=== PATIENT | female | born 1960 | race Caucasian/White ===

== ENCOUNTER → 2018-07-06 09:05 | Outpatient (CLI) | payer OTHER, MEDICAID, SELFPAY ==
--- NOTE | 2018-07-06 | DI.MG.S_ITS ---
BILATERAL DIGITAL DIAGNOSTIC MAMMOGRAM 3D/2D: 07/06/2018 CLINICAL: Left breast mass and pain with skin redness and peeling. No prior exams were available for comparison. There are scattered fibroglandular elements in both breasts. There is a low density focal asymmetry in the left breast at 3 o'clock anterior depth. This correlates as palpated. No other significant masses, calcifications, or other findings are seen in either breast. IMPRESSION: INCOMPLETE: NEEDS ADDITIONAL IMAGING EVALUATION The low density focal asymmetry in the left breast is indeterminate. An ultrasound is recommended. This exam was interpreted at Station ID: [id number]. NOTE: For mammograms, a report in lay terms will be sent to the patient. Approximately 15% of breast malignancies will not be visualized mammographically. In the management of a palpable breast mass, a negative mammogram must not discourage biopsy of a clinically suspicious lesion. Electronically Signed By: Agnes macias/alon:07/07/2018 10:33:26 Entry: - 07/07/2018 10:33:26 letter sent: Need Ultrasound ACR BI-RADS Category 0: Incomplete [id number]
== END ==
PROVIDERS: PCP Physician Assistant; Visit Provider Physician Assistant
DX: R92.8 Other abnormal and inconclusive findings on diagnostic imaging of breast (principal); N64.4 Mastodynia; N63.20 Unspecified lump in the left breast, unspecified quadrant
CPT/HCPCS: 77066; G0279

== ENCOUNTER 2018-08-12 23:15 | Emergency (ER) | payer OTHER, MEDICAID, SELFPAY ==
--- NOTE | 2018-08-12 23:19 | ED.GENADULT ---
HPI - General Adult General Chief complaint: Wound/Laceration Stated complaint: right wrist laceration sent by EMS Time Seen by Provider: 08/12/18 23:19 Source: patient Mode of arrival: ambulatory Limitations: no limitations History of Present Illness HPI narrative: Patient is a 57-year-old female not on anticoagulation here for evaluation of a laceration to her right wrist. Patient states that she was doing dishes when she cut her right wrist with a steak knife. [place] told to come the emergency department because of the bleeding. She does not know when her last tetanus shot was. The only intervention prior to arrival was placing a bandage over the laceration. Related Data Allergies Allergy/AdvReac Type Severity Reaction Status Date / Time INGREDIENT: NO KNOWN - NO Allergy Unknown Uncoded 12/14/17 13:11 KNOWN DRUG ALLERGY Review of Systems Musculoskeletal Comments: Pain in the right arm Integumentary/Breasts Comments: Cut to the right wrist Neurologic Comments: No tingling to the right hand Hematologic/Lymphatic Comments: Not on anticoagulation PFSH Medical History Healthy adult (Acute) Surgical History No pertinent past surgical history (Acute) Social History lives independently: Yes Smoking Status: Current every day smoker Exam Initial Vital Signs Initial Vital Signs: Vital Signs Temperature 97.7 F 08/12/18 23:24 Pulse Rate 96 H 08/12/18 23:24 Respiratory Rate 16 08/12/18 23:24 Blood Pressure 124/85 08/12/18 23:24 Pulse Oximetry 98 08/12/18 23:24 Const General: cooperative, healthy appearing, comfortable, well developed, well groomed and No acute distress Orientation: alert, awake and oriented x3 HENMT Head: normal to inspection and normocephalic Resp Effort & Inspection: normal respiratory effort Cardio Rate: regular rate Skin Other: 1 cm laceration to the volar aspect of the wrist just proximal to the wrist. Ulnar aspect. No active bleeding. Neuro General: alert, awake and oriented x3 Sensory Exam: no sensory deficits noted Extrem General: normal to inspection and capillary refill normal Psych Appearance: grossly normal and well kempt Procedures Laceration Repair Laceration 1: Site: upper extremity Side (If applicable): right Size (cm): 1 Description: linear Depth: simple, single layer Local Anesthetic: lidocaine 1% Amount of anesthesia used (mL): 2 Pre-repair: wound explored, irrigated extensively and deep structures intact Skin layer closed with: nylon Size (cm): 4-0 Number of sutures: 2 Technique: simple, interrupted Course Orders Ordered: Discontinued Medications Diphtheria/Tetanus/Acell Pertussis (Adacel) 0.5 ml IM .ONCE ONE Stop: 08/12/18 23:52 Last Admin: 08/13/18 00:04 Dose: 0.5 ml Vital Signs - 8 hr 08/12/18 23:24 Temperature 97.7 F Pulse Rate 96 H Respiratory Rate 16 Blood Pressure 124/85 Pulse Oximetry 98 Medical Decision Making MDM Narrative Medical decision making narrative: Patient is neurovascularly intact. Her tetanus was updated. The wound was irrigated extensively with out any deep structures injured. Closed as described above. Bandage placed. Patient was given care instructions. She can take Tylenol Motrin for any discomfort. She asked for Tylenol with codeine and I told her that Tylenol and Motrin should be sufficient. She was given return precautions. She expressed understanding and agreement with plan. Discharge Plan Departure Patient Disposition: Home Clinical Impression: Laceration of wrist, right Instructions: DI for Laceration Repair -- Simple Activity Restrictions/Additional Instructions: Keep the bandage on for the next 24 hr. After that you can remove it. You can wash your hands and shower like normal. The stitches do need to be removed in approximately 7-10 days. Your primary care doctor can do this. Take Tylenol or Motrin for any discomfort. Return to the emergency department for any new or worsening symptoms
[2018-08-12 23:24] VITALS: BP 124/85; PULSE 96; RESP 16; TEMP 36.5; O2SAT 98; BMI 26.9
[2018-08-13] MEDS: TET,DIPH,PERTUSS(ACELL),VAC/PF 0.5 ML SYRINGE IM (00:04)
[2018-08-13] MEDS: IBUPROFEN 400 MG TABLET 800 MG PO (00:56)
== END 2018-08-13 00:55 | disposition home or self-care (01) ==
PROVIDERS: Emergency Provider Emergency Medicine; PCP Physician Assistant
DX: S61.511A Laceration without foreign body of right wrist, initial encounter (principal); W26.0XXA Contact with knife, initial encounter; Y93.G1 Activity, food preparation and clean up
CPT/HCPCS: 12001; 90471; 99283; 90715

== ENCOUNTER → 2018-09-14 10:24 | Outpatient (CLI) | payer OTHER, MEDICAID, SELFPAY ==
--- NOTE | 2018-09-14 11:00 | DI.US.S_ITS ---
Patient Name: EMMA SILVA date: 1960 Sex: F Attending Physician: Tanner Indications: Date: 09/14/2018 13:02 At the request of: PHILIP WARD Procedure: US breast LT limited ULTRASOUND OF LEFT BREAST: 09/14/2018 CLINICAL: Palpable left breast lump for several months with improved but persistent skin erythema. Initially, there was a persistent asymmetry in the lateral subareolar region on recent mammogram of July 2018. Patient reports persistent symptoms despite 2 courses of antibiotics that was last taken 2 months prior. [facility] of the left breast was performed. Ly scale images of the real-time examination were reviewed. No abnormalities were seen sonographically in the left breast. IMPRESSION: INCOMPLETE: NEEDS ADDITIONAL IMAGING EVALUATION No sonographic abnormality noted in the area of palpable concern and overlying skin erythema. However, given persistence of clinical findings for approximately 4 months despite antibiotic therapy, recommend further evaluation with breast MRI. This exam was interpreted at Station ID: [id number]. Electronically Signed By: Mario Lopez M.D. aty/:09/15/2018 07:15:46 Entry: - 09/15/2018 07:15:46 letter sent: Need MRI Ultrasound BI-RADS: 0 Indeterminate
== END ==
PROVIDERS: PCP Physician Assistant; Visit Provider Physician Assistant
DX: R92.8 Other abnormal and inconclusive findings on diagnostic imaging of breast (principal)
CPT/HCPCS: 76642

== ENCOUNTER 2018-11-01 08:52 | Emergency (ER) | payer OTHER, MEDICAID, SELFPAY ==
[2018-11-01 09:00] VITALS: BP 158/83; PULSE 95; RESP 18; TEMP 36.9; O2SAT 99; BMI 28.6
--- NOTE | 2018-11-01 10:08 | DI.CT.S_ITS ---
PROCEDURE: CT HEAD/BRAIN WO CON INDICATIONS: neuro symptoms/trauma TECHNIQUE: Noncontrast 4.5 mm thick angled axial sections acquired from the foramen magnum to the vertex, with coronal and sagittal reformats. For radiation dose reduction, the following was used: automated exposure control, adjustment of mA and/or kV according to patient size. COMPARISON: None. FINDINGS: Image quality: Excellent. CSF spaces: Basal cisterns are patent. No extra-axial fluid collections. Ventricles are normal in size and shape. Brain: No midline shift. No intracranial masses or hemorrhage. Ly-white matter interface is normal. Skull and face: Calvarium and visualized facial bones are intact, without suspicious lesions. Sinuses: Visualized sinuses and mastoids are clear. IMPRESSION: No acute intracranial hemorrhage or other acute intracranial abnormality is detected. Dictated by: Dashawn Wilkerson M.D. on 11/01/2018 at 9:29 Approved by: Dashawn Wilkerson M.D. on 11/01/2018 at 9:30
[2018-11-01 11:06] VITALS: BP 128/84; PULSE 95; RESP 16; O2SAT 99
--- NOTE | 2018-11-01 11:46 | ED.HEATRA ---
HPI - Head Injury General Chief complaint: Head Injury Stated complaint: FELL, DIZZY, SLURRED SPEECH Time Seen by Provider: 11/01/18 11:45 Source: patient and family Mode of arrival: ambulatory Limitations: no limitations History of Present Illness HPI Narrative: This is a 58-year-old female comes to the emergency department with complaint of head injury approximately a week ago. Patient states that she had a slip and fall and fell hitting her head. Patient states since then she has had a little bit of a headache, she has felt dizzy, she had vomiting for about 3 or 4 days which has since resolved. Patient states she has a history of Meniere's disease. patient states she has chronic vertigo like symptoms and typically does have dizziness. She has felt like her years been sort of full she has had some decrease in hearing. Her states she seemed a little bit less focused and had some trouble word finding. She has not had any new weakness left versus right. She states she has had some weakness on the right side for 8 or 9 years. Patient has not followed with ENT in many years for her Meniere's disease. She is not having any weakness, numbness or tingling. Related Data Home Medications Medication Instructions Recorded Confirmed clonazepam 0.5 mg PO DAILY 11/01/18 11/01/18 gabapentin 600 mg PO TID 11/01/18 11/01/18 lisinopril 40 mg PO DAILY 11/01/18 11/01/18 oxycodone-acetaminophen 1 tab PO BID 11/01/18 11/01/18 Previous Rx's Medication Instructions Recorded ondansetron HCl [Zofran] 4 mg PO QID PRN #10 tab 11/01/18 Allergies Allergy/AdvReac Type Severity Reaction Status Date / Time No Known Drug Allergies Allergy Verified 11/01/18 09:00 Review of Systems Review of Systems ROS Unobtainable: All systems reviewed & are unremarkable except as noted in HPI and below Constitutional Denies chills, Denies fever(s), Denies lethargy and Denies weakness ENT Ears, Nose, Mouth, and Throat: Reports neck pain ( chronic) Cardiovascular Denies lightheadedness Gastrointestinal Gastrointestinal: Denies abdominal pain, Denies change in bowel habits, Denies diarrhea, Reports nausea and Denies vomiting ( Was for a couple days, stop now) Musculoskeletal Reports as per HPI, Denies muscle weakness, Reports neck pain ( chronic), Denies numbness, Denies stiffness and Denies tingling Neurologic Denies numbness, Denies tingling and Denies weakness PFSH Medical History Healthy adult (Acute) Meniere disease (Acute) Surgical History No pertinent past surgical history (Acute) Social History details: Lives on [facility] lives independently: Yes Smoking Status: Current every day smoker Social History details: Lives on [facility] lives independently: Yes Smoking Status: Current every day smoker Exam Narrative Exam Narrative: GEN: well nourished, well appearing Female, alert and oriented x 3, patient appears to be in no acute distress. HEENT: Atraumatic, pupils are equal round reactive to light, extraocular movements are intact, nares are clear, TMs are clear with no fluid, there is no conjunctival pallor. Throat is clear without any exudates, erythema, tonsillar enlargement or uvular deviation HEART: Regular rate and rhythm without murmur, clicks, rubs. LUNGS:Lungs clear to auscultation, no wheezes, rales, crackles, chest moves symmetrically ABD:bowel sounds normal, soft, non-tender, no guarding, rebound, rigidity, no masses noted, no hepatosplenomegaly :No CVA tenderness MSCL: Non-tender, no vertebral tenderness of the cervical spine or thoracic spine. Full range of motion.no muscle atrophy, muscles strength 5/5 upper and lower extremities, full range of motion, normal gait NEURO:CN 2-12 intact, sensation normal, reflexes 2/4 upper and lower extremities. Initial Vital Signs Initial Vital Signs: Vital Signs Temperature 98.4 F 11/01/18 09:00 Pulse Rate 95 H 11/01/18 09:00 Respiratory Rate 18 11/01/18 09:00 Blood Pressure 158/83 H 11/01/18 09:00 Pulse Oximetry 99 11/01/18 09:00 Course Orders Ordered: ED Orders 11/01/18 10:08 CT head/brain wo con Stat Discontinued Medications Meclizine HCl (Antivert) 25 mg PO NOW ONE Stop: 11/01/18 12:07 Last Admin: 11/01/18 12:19 Dose: 25 mg Vital Signs - 8 hr 11/01/18 11:06 11/01/18 12:42 Temperature 98.3 F Pulse Rate 95 H 98 H Respiratory Rate 16 16 Blood Pressure [Left Arm] 128/84 121/76 Pulse Oximetry 99 100 MDM - Head Injury Imaging Data Head CT : Radiologist's impression: [address] [address] [address] Scan Report Signed Patient: Whitney Low LMR#: [id number] : 1960Acct:[id number] Age/Sex: 58 / FDate of Service: 11/01/18 Loc: ED Accession Number: [id number] Procedure: CT head/brain wo con Ordering Provider: Renetta Hernandez D.O. PROCEDURE: CT HEAD/BRAIN WO CON INDICATIONS: neuro symptoms/trauma TECHNIQUE: Noncontrast 4.5 mm thick angled axial sections acquired from the foramen magnum to the vertex, with coronal and sagittal reformats. For radiation dose reduction, the following was used: automated exposure control, adjustment of mA and/or kV according to patient size. COMPARISON: None. FINDINGS: Image quality: Excellent. CSF spaces: Basal cisterns are patent. No extra-axial fluid collections. Ventricles are normal in size and shape. Brain: No midline shift. No intracranial masses or hemorrhage. Ly-white matter interface is normal. Skull and face: Calvarium and visualized facial bones are intact, without suspicious lesions. Sinuses: Visualized sinuses and mastoids are clear. IMPRESSION: No acute intracranial hemorrhage or other acute intracranial abnormality is detected. Dictated by: Dashawn Wilkerson M.D. on 11/01/2018 at 9:29 Approved by: Dashawn Wilkerson M.D. on 11/01/2018 at 9:30 [facility] Narrative Medical decision making narrative: Patient requested a dose of meclizine here, she left her prescription at home on 1 of the. I discussed suspect she has a concussion based on her symptomatology. She also has known history of many years and her long-standing history is are consistent with this. We discussed having her follow up with ENT as there may be options are medications that are available that would be helpful for symptom control. Patient I did discuss doing a short course of Zofran for nausea. Patient is comfortable with this plan. She was able to ambulate out the department without any issue. Discharge Plan Departure Patient Disposition: Home Clinical Impression: Concussion, Meniere disease Discharge Date/Time: 11/01/18 12:45 Interventions: ED Discharge Assessment Last Done: 11/01/18 13:09 Instructions: Concussion Activity Restrictions/Additional Instructions: Follow-up with her primary care physician in the next week if your symptoms are not improving. You may take Zofran under the tongue every 6 hr as needed for nausea. Continue your meclizine at home as needed for vertigo /Meniere symptoms. Included is referral for ENT for follow-up regarding her Meniere's disease. They may have some additional therapies or treatments that are helpful for your chronic symptoms. Return to the emergency department for passing out, sudden severe headache, persistent vomiting, new weakness, numbness, difficulty with movement or other new or concerning symptoms. Prescriptions: New ondansetron HCl [Zofran] 4 mg tablet 4 mg PO QID PRN (Reason: nausea and vomiting) Qty: 10 RF: 0 No Action gabapentin 600 mg tablet 600 mg PO TID RF: 0 clonazepam 0.5 mg tablet 0.5 mg PO DAILY RF: 0 oxycodone-acetaminophen 5-325 mg tablet 1 tab PO BID RF: 0 lisinopril 40 mg tablet 40 mg PO DAILY RF: 0 Referrals: Alonzo Jacome MD [Physician] - Daniella Hart PA-C [Primary Care Provider] -
[2018-11-01] MEDS: MECLIZINE HCL 12.5 MG TABLET 25 MG PO (12:19)
[2018-11-01 12:42] VITALS: BP 121/76; PULSE 98; RESP 16; TEMP 36.8; O2SAT 100
== END 2018-11-01 12:45 | disposition home or self-care (01) ==
PROVIDERS: Emergency Provider Emergency Medicine; PCP Physician Assistant
DX: S06.0X9A Concussion with loss of consciousness of unspecified duration, initial encounter (principal); H81.09 Meniere's disease, unspecified ear; W01.0XXA Fall on same level from slipping, tripping and stumbling without subsequent striking against object, initial encounter
CPT/HCPCS: 70450; 99282; 99283

== ENCOUNTER → 2018-12-07 11:12 | Outpatient (CLI) | payer OTHER, MEDICAID, SELFPAY ==
--- NOTE | 2018-12-07 | DI.MRI.S_ITS ---
BREAST MRI OF BOTH BREASTS- WITH CAD: 12/07/2018 CLINICAL: Abscess of left breast nipple. Comparison is made to exams dated: 09/14/2018 ultrasound and 07/06/2018 mammogram - [facility]. Interpretation of this MRI was correlated with available mammograms and ultrasounds. Informed consent was obtained from the patient. 20 cc of ProHance (Gadoteridol) nonionic contrast was injected. Axial T2, sagittal T1, and pre and post contrast T1 images were obtained with a dedicated breast coil. Post processing was performed including computer aided calculations of any tumor volumes and dimensions. Bilateral background breast enhancement is minimal. Right breast: No discrete mass or suspicious enhancement to suggest malignancy. No fluid collections. Left breast: There is a small curvilinear region of left retroareolar enhancement measuring up to approximately 1.6 cm in anteroposterior extent. No fluid collections to suggest an abscess. No definite abnormal skin thickening or enhancement. Elsewhere, no discrete mass or abnormal enhancement to suggest malignancy. Miscellaneous: No axillary or internal mammary lymphadenopathy by size criteria. IMPRESSION: INCOMPLETE: NEEDS ADDITIONAL IMAGING EVALUATION 1. Small curvilinear region of left retroareolar enhancement is indeterminate and may represent ductal inflammatory or infectious changes. However, given the appearance of enhancement within the duct, a 2nd look ultrasound is recommended to evaluate for possible intraductal mass lesion. 2. No abscess identified in the left breast as clinically queried. This exam was interpreted at Station ID: [id number]. Electronically Signed By: Bj Garcia M.D. ddbeatriz/:12/07/2018 17:24:48 letter sent: Need Ultrasound ACR BI-RADS Category 0: Incomplete [id number]
== END ==
PROVIDERS: PCP Physician Assistant; Visit Provider Family Medicine
DX: R92.8 Other abnormal and inconclusive findings on diagnostic imaging of breast (principal); N61.1 Abscess of the breast and nipple
CPT/HCPCS: 77049; A9579

== ENCOUNTER → 2019-05-09 10:48 | Outpatient (CLI) | payer OTHER, MEDICAID, SELFPAY ==
--- NOTE | 2019-05-09 | DI.US.S_ITS ---
LIMITED SECONDLOOK ULTRASOUND OF LEFT BREAST: 05/09/2019 CLINICAL: Additional evaluation requested from prior study. Comparison is made to exams dated: 12/07/2018 breast MRI, 09/14/2018 ultrasound, and 07/06/2018 mammogram [facility]. Real-time ultrasound of the left breast retroareolar was performed. Ly scale images of the real-time examination were reviewed. No significant abnormalities were seen sonographically in the left breast. Specifically, no finding to correspond to the patient's MRI abnormality. IMPRESSION: NEGATIVE No suspicious sonographic finding to correspond to MRI finding. There is no sonographic evidence of malignancy. Return to annual mammogram screening schedule is recommended. Findings and recommendations were conveyed to the patient at time of exam. This exam was interpreted at Station ID: [id number]. Electronically Signed By: Laura joy/:05/09/2019 15:54:17 letter sent: Normal Exam Ultrasound BI-RADS: 1 Negative
== END ==
PROVIDERS: PCP Physician Assistant; Visit Provider Physician Assistant
DX: R92.8 Other abnormal and inconclusive findings on diagnostic imaging of breast (principal)
CPT/HCPCS: 76642

== ENCOUNTER → 2019-07-11 11:09 | Outpatient (CLI) | payer OTHER, MEDICAID, SELFPAY ==
--- NOTE | 2019-07-11 | DI.MRI.S_ITS ---
PROCEDURE: MR LUMBAR SPINE WO CON INDICATIONS: PARESTHESIA OF SKIN TECHNIQUE: Noncontrast sagittal T1 spin echo and T2 fast echo, sagittal STIR, axial T1 and T2 fast spin echo through the lumbar spine. In cases with scoliosis, additional coronal T2 fast spin echo may be performed. COMPARISON: None. FINDINGS: Image quality: Excellent. Alignment and Curvature: There is trace L3-L4 and L4-L5 anterolisthesis. Bone Marrow: Marrow is of normal overall signal. No acute vertebral body compression fractures. Spinal Cord: Conus medullaris terminates at the L1 level. Visualized cord demonstrates normal signal and size. Paraspinous Soft Tissues: No paravertebral masses. L1-L2: Slight loss of disc signal. Minimal, diffuse disc bulge. No central stenosis. No neural foraminal narrowing. No neural compression. L2-L3: Slight loss of disc signal. Minimal, diffuse disc bulge. Mild bilateral facet hypertrophy. No central stenosis. No neural foraminal narrowing. No neural compression. L3-L4: Loss of disc signal. Mild, diffuse disc bulge. [id number] facet hypertrophy. Moderate ligamentum flavum hypertrophy. Moderate to severe narrowing of the central canal. Moderate right and mild left neural foraminal narrowing. No neural compression. L4-L5: Loss of disc signal and slight loss of disc height. Moderate, diffuse disc bulge with severe facet hypertrophy. Severe narrowing of the central canal with compression of the nerve roots of the cauda equina. Moderate right and severe left neural foraminal narrowing with compression of the exiting left L4 nerve root. L5-S1: Loss of disc signal. Mild, diffuse disc bulge. Mild bilateral facet hypertrophy. No central stenosis. Mild right neural foraminal narrowing. No neural compression. IMPRESSION: 1. Grade 1 L3-L4 and L4-L1 degenerative spondylolisthesis. 2. Multilevel degenerative disc disease. 3. Multilevel facet arthropathy. 4. Severe L4-L5 central canal stenosis. Moderate to severe L3-L4 central canal narrowing. 5. Moderate right and severe left L4-L5 neural foraminal narrowing. Moderate right and mild left L3-L4 neural foraminal narrowing. Mild right L5-S1 neural foraminal narrowing. 6. Compression of the nerve roots of the cauda equina at the level of the L4-L5 disc secondary to central canal stenosis. 7. Compression of the exiting left L4 nerve root secondary to left L4-L5 neural foraminal narrowing. Dictated by: Hetal Chan MD, PhD on 07/11/2019 at 15:41 Approved by: Hetal Chan MD, PhD on 07/11/2019 at 15:49
== END ==
PROVIDERS: PCP Physician Assistant; Visit Provider Psychiatry & Neurology Neurology
DX: R20.2 Paresthesia of skin (principal); M43.16 Spondylolisthesis, lumbar region; M51.36 Other intervertebral disc degeneration, lumbar region; M51.37 Other intervertebral disc degeneration, lumbosacral region; M47.816 Spondylosis without myelopathy or radiculopathy, lumbar region; M47.817 Spondylosis without myelopathy or radiculopathy, lumbosacral region; M48.061 Spinal stenosis, lumbar region without neurogenic claudication; M48.07 Spinal stenosis, lumbosacral region; I73.9 Peripheral vascular disease, unspecified
CPT/HCPCS: 72148

== ENCOUNTER 2020-03-29 21:24 | Emergency (ER) | payer OTHER, MEDICAID, SELFPAY ==
--- NOTE | 2020-03-29 21:35 | ED.BACK ---
HPI - Back Pain/Injury General Chief Complaint: Back Pain/Injury Stated Complaint: lumbar surgery,pain and meds are not helping Time Seen by Provider: 03/29/20 21:27 Source: patient Mode of arrival: Wheelchair Limitations: no limitations History of Present Illness HPI Narrative: 59-year-old female who approximately 1 week ago underwent a lumbar fusion with hardware placement at [facility]. Patient was discharged on 03/25/2020. She reports to emergency department today initially stating that the medications she was discharged home with were not controlling her discomfort. She takes Tylenol, gabapentin, methocarbamol. She stated that she was also discharged home on hydromorphone. She thinks is 2 mg dose. She states she has not taken it since last evening because head has not been working for her. She states that oxycodone works for her. She states she was on oxycodone prior to her discharge but was discharged home on hydromorphone. She stated that she came to the emergency department for x-rays. She [place] [facility]. She states that the EMT's there contacted her primary doctor who told her to come to the emergency department for x-rays. Patient told me that her primary provider was willing to provide pain control for her. She states she is having dysuria. She states that she gets urinary tract infections frequently and she thinks she has 1 now however she states that she never takes any antibiotics for them and just lets them resolve on their own. She denies any fevers. No bowel changes. Related Data Home Medications Medication Instructions Recorded Confirmed clonazepam 0.5 mg PO DAILY 11/01/18 11/01/18 gabapentin 600 mg PO TID 11/01/18 11/01/18 lisinopril 40 mg PO DAILY 11/01/18 11/01/18 oxycodone-acetaminophen 1 tab PO BID 11/01/18 11/01/18 Previous Rx's Medication Instructions Recorded ondansetron HCl [Zofran] 4 mg PO QID PRN #10 tab 11/01/18 oxycodone-acetaminophen [Percocet] 1 tab PO Q4H PRN #10 tab 03/29/20 Allergies Allergy/AdvReac Type Severity Reaction Status Date / Time hydrocodone Allergy ITCHING Verified 03/29/20 21:47 Review of Systems Constitutional Constitutional: Denies fever(s) Cardiovascular Cardiovascular: Denies chest pain and Denies dyspnea Respiratory Respiratory: Denies dyspnea Gastrointestinal Gastrointestinal: Denies abdominal pain, Denies change in bowel habits, Denies nausea and Denies vomiting Genitourinary Genitourinary: Reports dysuria, Denies urinary hesitancy, Denies urinary incontinence and Denies urinary urgency Genitourinary: Reports dysuria, Denies pelvic pain, Denies urinary incontinence, Denies urinary hesitancy and Denies urinary urgency Musculoskeletal Musculoskeletal: Reports back pain Integumentary/Breasts Comments: No redness around the incision Neurologic Neurologic: Denies behavioral changes and Denies burning sensations Psychiatric Psychiatric: Denies behavioral changes Hematologic/Lymphatic Hematologic/Lymphatic: Denies easy bleeding and Denies easy bruising Allergic/Immunologic Allergic/Immunologic: Denies urticaria Patient History Medical History Healthy adult (Acute) Meniere disease (Acute) Surgical History (Updated 08/13/18 @ 00:49 by Ruddy Bhagat DO) No pertinent past surgical history (Acute) Social History details: Lives on [facility] lives independently: Yes Smoking Status: Current every day smoker Smoking Status: Current every day smoker alcohol intake frequency: 0-2 drinks per day Substance Use Type: does not use Exam Initial Vital Signs Initial Vital Signs: Vital Signs Temperature 99.7 F H 03/29/20 21:36 Pulse Rate 103 H 03/29/20 21:36 Respiratory Rate 14 03/29/20 21:36 Blood Pressure 130/76 03/29/20 21:36 Pulse Oximetry 99 03/29/20 21:36 Const General: cooperative and comfortable Limitations: mental status not altered [facility] Head: normal to inspection and normocephalic Resp Effort & Inspection: normal respiratory effort Cardio Rate: regular rate GI Inspection: non-distended Skin Other: Surgical incision midline lumbar spine appears well without surrounding erythema or drainage Neuro General: patient alert, patient awake and patient oriented x3 Cognition: normal cognition Extrem General: normal to inspection and capillary refill normal Psych Appearance: grossly normal and well kempt Scores [facility] [place] coma scale eye opening: Spontaneous [place] coma scale verbal response: Orientated Cheri coma scale motor response: Obey commands Cheri coma scale total score: 15 Course Orders Ordered: ED Orders 03/29/20 21:43 XR lumbar spine 2-3V Stat Discontinued Medications Oxycodone/Acetaminophen (Percocet 5/325) 2 tab PO NOW ONE Stop: 03/29/20 21:45 Last Admin: 03/29/20 22:03 Dose: 2 tab Documented by: STACIE Oxycodone/Acetaminophen (Endocet 5/325 Prepack) 1 bottle MISC SEEINSTR ONE Stop: 03/29/20 22:34 Last Admin: 03/29/20 22:40 Dose: 1 bottle Documented by: NILTON Vital Signs Vital signs: Vital Signs - 8 hr 03/29/20 21:36 03/29/20 22:48 Temperature 99.7 F H Pulse Rate 103 H 85 Respiratory Rate 14 16 Blood Pressure 130/76 101/53 L Pulse Oximetry 99 97 MDM - Back Pain/Injury Imaging Data X-ray lumbar spine: Radiologist's Impression: [address] [address] XRay Report Signed Patient: Whitney Li LMR#: [id number] : 1960Acct:[id number] Age/Sex: 59 / FDate of Service: 03/29/20 Loc: ED Accession Number: [id number] Procedure: XR lumbar spine 2-3V Ordering Provider: Ruddy Bhagat D.O. PROCEDURE: XR LUMBAR SPINE 2-3V INDICATIONS: post op S/P fusion with pain XR requested by surgeon TECHNIQUE: 3 views of the lumbar spine were acquired. COMPARISON: [facility], , XR LUMBAR SPINE 2 OR 3 VIEWS, 10/25/2019, 11:56. FINDINGS: Bones: 5 [id number] vertebrae are present. There is normal bony alignment. No vertebral body compression fractures. No suspicious bony lesions. L3 -L4 and L4-L5 a pedicle screws with intervertebral body spacers. No hardware fracture. Soft tissues: Overlying bowel gas pattern is within normal limits. No suspicious soft tissue calcifications. IMPRESSION: No compression fracture. Expected appearance of the L3-L5 TLIF. Dictated by: Marky Koch M.D. on 03/29/2020 at 22:15 Approved by: Marky Koch M.D. on 03/29/2020 at 22:17 [facility] Narrative Medical decision making narrative: Patient surgical incision looks well. She is not having any fevers. She states she does not want any treatment for her dysuria she states that her urinary symptoms normally just resolve on their own without any antibiotics. Her x-rays are unremarkable. I was able to obtain the patient's discharge summary and also operative notes. Review of the medications she was discharged with shows that she was sent home on 10 mg oxycodone to be used every 4-6 hours. There was no hydromorphone listed on her discharge medications. When I asked the patient about that she stated that she was discharged on oxycodone and was taken 2 tablets every 4 hours instead of 1. She states she ran out of these medications and when she contacted the operative surgeon they switched her to the hydromorphone which she states does not work for her. I do not feel that there is any emergent condition. Does not appear to be any infection. No signs of fractures or miss placement of the hardware. I informed the patient that how to the emergency department I could provide her 1 day worth of medication and that she needed to contact her operative surgeon or her primary doctor on Tuesday for any further pain management. Patient expressed understanding and agreement. Discharge Plan Departure Patient Disposition: Home Clinical Impression: Postoperative back pain Discharge Date/Time: 03/29/20 22:48 Instructions: Low Back Pain Activity Restrictions/Additional Instructions: Unfortunately the emergency department cannot provide further pain management for this situation. This needs to come from either your operative surgeon or from your primary provider. Use the medications you were given this evening as directed. I recommend that you contact her primary provider and also your surgeon on Tuesday for follow-up. Return to the emergency department for any new symptoms Prescriptions: New oxycodone-acetaminophen [Percocet] 5-325 mg tablet 1 tab PO Q4H PRN (Reason: pain) Qty: 10 RF: 0 No Action gabapentin 600 mg tablet 600 mg PO TID RF: 0 clonazepam 0.5 mg tablet 0.5 mg PO DAILY RF: 0 oxycodone-acetaminophen 5-325 mg tablet 1 tab PO BID RF: 0 lisinopril 40 mg tablet 40 mg PO DAILY RF: 0 ondansetron HCl [Zofran] 4 mg tablet 4 mg PO QID PRN (Reason: nausea and vomiting) Qty: 10 RF: 0 Referrals: Daniella Hart PA-C [Primary Care Provider] -
[2020-03-29 21:36] VITALS: BP 130/76; PULSE 103; RESP 14; TEMP 37.6; O2SAT 99
--- NOTE | 2020-03-29 21:43 | DI.RAD.S_ITS ---
PROCEDURE: XR LUMBAR SPINE 2-3V INDICATIONS: post op S/P fusion with pain XR requested by surgeon TECHNIQUE: 3 views of the lumbar spine were acquired. COMPARISON: [facility], CR, XR LUMBAR SPINE 2 OR 3 VIEWS, 10/25/2019, 11:56. FINDINGS: Bones: 5 [id number] vertebrae are present. There is normal bony alignment. No vertebral body compression fractures. No suspicious bony lesions. L3 -L4 and L4-L5 a pedicle screws with intervertebral body spacers. No hardware fracture. Soft tissues: Overlying bowel gas pattern is within normal limits. No suspicious soft tissue calcifications. IMPRESSION: No compression fracture. Expected appearance of the L3-L5 TLIF. Dictated by: Marky Koch M.D. on 03/29/2020 at 22:15 Approved by: Marky Koch M.D. on 03/29/2020 at 22:17
[2020-03-29] MEDS: OXYCODONE/ACETAMINOPHEN 5/325 TABLET 2 TAB PO (22:03)
[2020-03-29] MEDS: OXYCODONE/APAP 5/325 PREPACK 1 BOTTLE MISC (22:40)
[2020-03-29 22:48] VITALS: BP 101/53; PULSE 85; RESP 16; O2SAT 97
== END 2020-03-29 22:48 | disposition home or self-care (01) ==
PROVIDERS: Emergency Provider Emergency Medicine; PCP Physician Assistant
DX: G89.18 Other acute postprocedural pain (principal); R30.0 Dysuria; M54.9 Dorsalgia, unspecified
CPT/HCPCS: 72100; 99283

== ENCOUNTER → 2020-11-20 13:47 | Outpatient (CLI) | payer MEDICARE, SELFPAY ==
[2020-11-20] MEDS: COVID-19 VACC #1, MRNA(MOD) 100 MCG/0.5 ML VIAL IM (13:53)
== END ==
PROVIDERS: PCP Physician Assistant; Visit Provider Internal Medicine
DX: Z23 Encounter for immunization (principal)
CPT/HCPCS: 0011A; 91301

== ENCOUNTER → 2020-11-20 14:11 | Outpatient (CLI) | payer MEDICARE, MEDICAID, SELFPAY ==
--- NOTE | 2020-11-20 | DI.MRI.S_ITS ---
PROCEDURE: MR CERVICAL SPINE WO CON INDICATIONS: RADICULOPATHY, CERVICAL REGION TECHNIQUE: Noncontrast sagittal T1 spin echo and T2 fast spin echo, sagittal STIR, foraminal oblique sagittal T2 fast spin echo, and axial gradient echo or T2 fast spin echo through the cervical spine. COMPARISON: [facility], , MRI C-SPINE W/O CONTRAST, 07/01/2005, 14:43. [facility], , MRI C-SPINE W/O CONTRAST, 08/26/2004, 9:16. [facility], RG, MRI C-SPINE W/O CONTRAST, 03/19/2003, 8:28. [facility], CR, XR CERVICAL SPINE 2 OR 3 VIEWS, 10/25/2019, 11:51. [facility], MR, C-SPINE WITHOUT CONTRAST, 09/25/2008, 10:32. FINDINGS: Image quality: Excellent. Alignment and Curvature: There is mild anterolisthesis at C4-C5. There is overall straightening of the normal cervical lordosis. Bone Marrow: Marrow demonstrates normal overall signal. Spinal Cord: Visualized spinal cord has normal size and signal. No cerebellar tonsillar herniation. Paraspinous Soft Tissues: No paravertebral masses. Prevertebral soft tissues are normal in thickness. Anterior fixation hardware is seen C5 through C7, with associated susceptibility artifact. The hardware itself is better seen on prior plain film. C2-C3: The disc height is well-preserved. Loss of disc signal is seen at this level. Mild to moderate disc osteophyte complex is seen. At least moderate facet hypertrophy is seen. There is moderate left-sided and no significant right-sided neural foraminal narrowing seen. No significant central canal narrowing is seen. These imaging findings have progressed compared to the prior study. C3-C4: The disc height is well-preserved. Loss of disc signal is seen at this level. Mild to moderate disc bulge is seen. At least moderate facet hypertrophy is seen at this level. There is moderate to severe bilateral neural foraminal narrowing seen, left worse than right. Mild central canal narrowing is seen. These imaging findings have progressed compared to the prior study. C4-C5: Moderate to severe loss of disc height and disc signal can be seen. Moderate to prominent disc osteophyte complex is seen, which is eccentric to the right. There is moderate to prominent right-sided and moderate left-sided facet hypertrophy seen. There is moderate to severe bilateral neural foraminal narrowing seen. Moderate to severe central canal narrowing is seen, with associated mass effect upon the ventral spinal cord, as on series 4, image 24. These degenerative changes have clearly progressed compared to 2009. C5-C6: Moderate loss of disc height and disc signal can be seen. Moderate disc osteophyte complex is seen, which is eccentric to the right. There is a right lateral recess disc osteophyte protrusion seen. Moderate to severe bilateral neural foraminal narrowing is seen. Mild to moderate central canal narrowing is seen. These degenerative changes are mildly progressed compared to 2009. C6-C7: Moderate loss of disc height is seen. Loss of disc signal is seen. Moderate generalized disc osteophyte complex is seen. Mild facet joint hypertrophy is seen. Moderate bilateral neural foraminal narrowing is seen. Mild central canal narrowing is seen. When comparison is made with the prior examination, these findings are similar. C7-T1: Moderate loss of disc height is seen. Loss of disc signal is seen. Moderate generalized disc osteophyte complex is seen. Mild facet joint hypertrophy is seen. There is at least moderate bilateral neural foraminal narrowing seen. Mild central canal narrowing is seen. These imaging findings have progressed compared to the prior study. IMPRESSION: Multiple levels of cervical spine degenerative change are seen, which are progressed compared to 2009 and overall worst at the C4-C5 level. C5 through C7 anterior fixation hardware can be seen. Dictated by: Dashawn Wilkerson M.D. on 11/20/2020 at 14:21 Approved by: Dashawn Wilkerson M.D. on 11/20/2020 at 14:29
== END ==
PROVIDERS: PCP Family Medicine; Referring Provider Family Medicine; Visit Provider Family Medicine
DX: M50.11 Cervical disc disorder with radiculopathy, high cervical region (principal); Z23 Encounter for immunization
CPT/HCPCS: 0011A; 72141; 91301

== ENCOUNTER → 2021-01-30 11:28 | Outpatient (CLI) | payer MEDICARE, MEDICAID, SELFPAY ==
[2021-01-30 20:12] LABS: COVID19 - ORCAS (NP or Nasal) Negative (Negative)
== END ==
PROVIDERS: PCP Family Medicine; Visit Provider Family Medicine
DX: Z20.822 Contact with and (suspected) exposure to COVID-19 (principal)
CPT/HCPCS: C9803; U0003

== ENCOUNTER → 2021-03-18 10:22 | Outpatient (CLI) | payer MEDICARE, OTHER, SELFPAY | PROVIDERS: PCP Physician Assistant; Visit Provider Physician Assistant Medical | DX: T81.42XA Infection following a procedure, deep incisional surgical site, initial encounter (principal) | CPT/HCPCS: 87070; 87075; 87077; 87147; 87186; 87205 ==

== ENCOUNTER → 2021-10-09 09:13 | Outpatient (CLI) | payer MEDICARE, OTHER, SELFPAY ==
[2021-10-09 20:20] LABS: COVID19 - ORCAS (NP or Nasal) Negative (Negative)
== END ==
PROVIDERS: PCP Physician Assistant Medical; Visit Provider Physician Assistant Medical
DX: Z20.822 Contact with and (suspected) exposure to COVID-19 (principal)
CPT/HCPCS: U0003

== ENCOUNTER → 2022-02-11 10:15 | Outpatient (CLI) | payer MEDICARE, OTHER, MEDICAID, SELFPAY ==
[2022-02-11 18:40] LABS: Add Manual Diff / Slide Review NO; Basophils Absolute Auto 100 /uL (0-100); Basophils Percent Auto 1.6 % (0-2); Eosinophils Absolute Auto 200 /uL (0-450); Eosinophils Percent Auto 4.9 % (2-4); Hematocrit 32.3 % (36-46); Hemoglobin 11.1 g/dL (12.0-16.0); Lymphocytes Absolute Auto 2000 /uL (1100-4500); Lymphocytes Percent Auto 43.7 % (25-40); Mean Corpuscular HGB Conc 34.4 % (30-36); Mean Corpuscular Hemoglobin 30.5 PG (26-34); Mean Corpuscular Volume 88.9 fL (80-100); Monocytes Absolute Auto 400 /uL (0-900); Monocytes Percent Auto 8.5 % (3-14); Neutrophils Absolute Auto 1900 /uL (1500-7000); Neutrophils Percent Auto 41.3 % (50-75); Platelet Count 231 X10^3/uL (150-400); Red Blood Cell Count 3.63 X10^6/uL (4.0-5.2); Red Cell Distribution Width 15.2 % (11.6-14.8); White Blood Cell Count 4.5 X10^3/uL (4.5-11.0)
[2022-02-11 18:47] LABS: BUN Creatinine Ratio 28.6 (6-22); Blood Urea Nitrogen 16 mg/dL (7-17); Calcium 8.6 mg/dL (8.4-10.2); Carbon Dioxide 30 mmol/L (22-32); Chloride 105 mmol/L (98-107); Estimated Glomerular Filt Rate > 60 mL/min (>60); Glucose 72 mg/dL (70-100); HEMOLYSIS < 15 (0-50); Potassium 3.8 mmol/L (3.4-5.1); Sodium 140 mmol/L (137-145)
[2022-02-11 19:16] LABS: Testosterone 15.4 ng/dL (5.71-77.0)
[2022-02-11 19:34] LABS: Vitamin B12 378 pg/mL (239-931)
[2022-02-11 19:37] LABS: Erythrocyte Sedimentation Rate 6 MM/HR (0-20)
[2022-02-16 16:08] LABS: ANA Screen, IFA Positive (.)
== END ==
PROVIDERS: PCP Family Medicine; Visit Provider Family Medicine
DX: E53.8 Deficiency of other specified B group vitamins (principal); F11.11 Opioid abuse, in remission; F32.9 Major depressive disorder, single episode, unspecified; F33.0 Major depressive disorder, recurrent, mild; F41.0 Panic disorder [episodic paroxysmal anxiety]; F41.9 Anxiety disorder, unspecified; F43.10 Post-traumatic stress disorder, unspecified; G89.29 Other chronic pain; G99.2 Myelopathy in diseases classified elsewhere; I10 Essential (primary) hypertension; M48.02 Spinal stenosis, cervical region; M54.12 Radiculopathy, cervical region; M54.2 Cervicalgia; M54.42 Lumbago with sciatica, left side; Z98.890 Other specified postprocedural states; M25.50 Pain in unspecified joint
CPT/HCPCS: 80048; 82607; 84403; 84443; 85025; 85651; 86038

== ENCOUNTER → 2022-12-15 12:02 | Outpatient (CLI) | payer MEDICARE, MEDICAID, SELFPAY ==
[2022-12-15 19:41] LABS: HEMOLYSIS < 15 (0-50); Iron 45 ug/dL (37-170)
[2022-12-15 19:52] LABS: Percent Iron Saturation 9 % (15-50); Total Iron Binding Capacity 495 ug/dL (265-497); Transferrin 376 mg/dL (206-381)
[2022-12-18 17:08] LABS: Antiribosomal P Antibodies <0.2 AI (0.0-0.9); DNA (DS) Antibody 1 IU/mL (0-9)
== END ==
PROVIDERS: PCP Family Medicine; Visit Provider Family Medicine
DX: D64.9 Anemia, unspecified (principal); M25.50 Pain in unspecified joint; R76.8 Other specified abnormal immunological findings in serum
CPT/HCPCS: 83516; 83540; 83550; 86225; 86235

== ENCOUNTER → 2022-12-21 11:29 | Outpatient (CLI) | payer MEDICARE, MEDICAID, SELFPAY | PROVIDERS: PCP Family Medicine; Visit Provider Physician Assistant Medical | DX: R32 Unspecified urinary incontinence (principal); R50.9 Fever, unspecified | CPT/HCPCS: 87086 ==

== ENCOUNTER → 2023-04-18 08:39 | Outpatient (CLI) | payer MEDICARE, MEDICAID, SELFPAY ==
[2023-04-18 21:38] LABS: Add Manual Diff / Slide Review NO; Basophils Absolute Auto 0 /uL (0-100); Basophils Percent Auto 0.7 % (0-2); Eosinophils Absolute Auto 100 /uL (0-450); Eosinophils Percent Auto 2.1 % (2-4); Hemoglobin 13.7 g/dL (12.0-16.0); Lymphocytes Absolute Auto 1200 /uL (1100-4500); Lymphocytes Percent Auto 26.3 % (25-40); Mean Corpuscular HGB Conc 33.4 % (30-36); Mean Corpuscular Hemoglobin 30.4 PG (26-34); Mean Corpuscular Volume 90.9 fL (80-100); Monocytes Absolute Auto 400 /uL (0-900); Monocytes Percent Auto 7.8 % (3-14); Neutrophils Absolute Auto 2800 /uL (1500-7000); Neutrophils Percent Auto 63.1 % (50-75); Platelet Count 272 X10^3/uL (150-400); Red Blood Cell Count 4.51 X10^6/uL (4.0-5.2); Red Cell Distribution Width 15.3 % (11.6-14.8); White Blood Cell Count 4.5 X10^3/uL (4.5-11.0)
[2023-04-18 21:59] LABS: BUN Creatinine Ratio 27.8 (6-22); Blood Urea Nitrogen 15 mg/dL (7-17); Calcium 9.8 mg/dL (8.4-10.2); Carbon Dioxide 31 mmol/L (22-32); Chloride 98 mmol/L (98-107); Cholesterol 218 mg/dL (140-199); Estimated Glomerular Filt Rate > 60 mL/min (>60); Glucose 111 mg/dL (80-110); HDL Cholesterol 56 mg/dL (40-60); HEMOLYSIS < 15 (0-50); LDL Cholesterol Calculated 139 mg/dL (<100); Potassium 4.4 mmol/L (3.4-5.1); Sodium 138 mmol/L (137-145); Triglycerides 113 mg/dL (35-150)
[2023-04-18 22:32] LABS: TSH w/ Reflex to FT4 0.11 uIU/mL (0.47-4.68)
[2023-04-18 22:50] LABS: Vitamin B12 > 1000 pg/mL (239-931)
[2023-04-18 23:23] LABS: Free T4, Direct Thyroxine 1.12 ng/dL (0.78-2.19)
== END ==
PROVIDERS: PCP Family Medicine; Visit Provider Family Medicine
DX: D64.9 Anemia, unspecified (principal); E53.8 Deficiency of other specified B group vitamins; F11.90 Opioid use, unspecified, uncomplicated; Z13.1 Encounter for screening for diabetes mellitus; M17.12 Unilateral primary osteoarthritis, left knee; Z13.220 Encounter for screening for lipoid disorders; Z98.1 Arthrodesis status; Z79.899 Other long term (current) drug therapy
CPT/HCPCS: 80048; 80061; 82607; 84439; 84443; 85025

== ENCOUNTER → 2024-01-12 10:51 | Outpatient (CLI) | payer MEDICARE, MEDICAID, SELFPAY ==
[2024-01-12 19:56] LABS: Add Manual Diff / Slide Review NO; Basophils Absolute Auto 0 /uL (0-100); Basophils Percent Auto 0.5 % (0-2); Eosinophils Absolute Auto 100 /uL (0-450); Eosinophils Percent Auto 0.8 % (2-4); Hematocrit 39.7 % (36-46); Hemoglobin 13.2 g/dL (12.0-16.0); Lymphocytes Absolute Auto 1500 /uL (1100-4500); Lymphocytes Percent Auto 19.8 % (25-40); Mean Corpuscular HGB Conc 33.2 % (30-36); Mean Corpuscular Hemoglobin 30.8 PG (26-34); Monocytes Absolute Auto 300 /uL (0-900); Monocytes Percent Auto 4.5 % (3-14); Neutrophils Absolute Auto 5500 /uL (1500-7000); Neutrophils Percent Auto 74.4 % (50-75); Platelet Count 256 X10^3/uL (150-400); Red Blood Cell Count 4.27 X10^6/uL (4.0-5.2); Red Cell Distribution Width 14.3 % (11.6-14.8); White Blood Cell Count 7.4 X10^3/uL (4.5-11.0)
[2024-01-12 20:10] LABS: Alanine Aminotransferase 24 IU/L (<35); Albumin 4.6 g/dL (3.5-5.0); Albumin Globulin Ratio 1.8 (1.0-2.8); Alkaline Phosphatase 78 U/L (38-126); Aspartate Aminotransferase 28 IU/L (14-36); BUN Creatinine Ratio 27.3 (6-22); Bilirubin Total 0.5 mg/dL (0.2-1.3); Blood Urea Nitrogen 15 mg/dL (7-17); Calcium 9.2 mg/dL (8.4-10.2); Carbon Dioxide 30 mmol/L (22-32); Chloride 104 mmol/L (98-107); Cholesterol 213 mg/dL (140-199); Estimated Glomerular Filt Rate > 60 mL/min (>60); Globulin 2.5 g/dL (1.7-4.1); Glucose 93 mg/dL (80-110); HDL Cholesterol 75 mg/dL (40-60); HEMOLYSIS < 15 (0-50); LDL Cholesterol Calculated 94 mg/dL (<100); Potassium 4.2 mmol/L (3.4-5.1); Sodium 139 mmol/L (137-145); Total Protein 7.1 g/dL (6.3-8.2); Triglycerides 219 mg/dL (35-150)
[2024-01-12 20:57] LABS: TSH w/ Reflex to FT4 0.75 uIU/mL (0.47-4.68)
== END ==
PROVIDERS: PCP Family Medicine; Visit Provider Family Medicine
DX: Z13.220 Encounter for screening for lipoid disorders (principal); Z13.1 Encounter for screening for diabetes mellitus; D64.9 Anemia, unspecified; E53.8 Deficiency of other specified B group vitamins; E05.90 Thyrotoxicosis, unspecified without thyrotoxic crisis or storm; Z87.01 Personal history of pneumonia (recurrent)
CPT/HCPCS: 80053; 80061; 84443; 85025; 86376; 86800

== ENCOUNTER → 2024-08-20 10:26 | Outpatient (CLI) | payer MEDICARE, MEDICAID, SELFPAY ==
[2024-08-20 19:43] LABS: Cholesterol 256 mg/dL (140-199); Glucose 90 mg/dL (80-110); HDL Cholesterol 79 mg/dL (40-60); LDL Cholesterol Calculated 140 mg/dL (<100); Triglycerides 183 mg/dL (35-150)
[2024-08-20 20:34] LABS: Hep C Virus Ab w/Reflex Quant NEGATIVE s/c (NEGATIVE)
== END ==
PROVIDERS: PCP Family Medicine; Visit Provider Family Medicine
DX: Z13.6 Encounter for screening for cardiovascular disorders (principal); Z13.1 Encounter for screening for diabetes mellitus
CPT/HCPCS: 80061; 82947; 86803

== ENCOUNTER → 2025-07-09 09:51 | Outpatient (CLI) | payer MEDICARE, MEDICAID, SELFPAY ==
[2025-07-09 19:26] LABS: Add Manual Diff / Slide Review NO; Hematocrit 39.9 % (36-46); Hemoglobin 13.4 g/dL (12.0-16.0); Lymphocytes Absolute Auto 2000 /uL (1100-4500); Mean Corpuscular HGB Conc 33.7 % (30-36); Mean Corpuscular Hemoglobin 31.4 PG (26-34); Mean Corpuscular Volume 93.3 fL (80-100); Platelet Count 252 X10^3/uL (150-400)
[2025-07-09 19:31] LABS: Blood Urea Nitrogen 18 mg/dL (7-17); Calcium 9.1 mg/dL (8.4-10.2); Carbon Dioxide 29 mmol/L (22-32); Chloride 100 mmol/L (98-107); Cholesterol 245 mg/dL (140-199); Estimated Glomerular Filt Rate > 60 mL/min (>60); Glucose 88 mg/dL (70-99); HEMOLYSIS < 15 (0-50); Potassium 4.1 mmol/L (3.4-5.1); Sodium 136 mmol/L (137-145); Triglycerides 110 mg/dL (35-150)
[2025-07-09 19:39] LABS: HDL Cholesterol 117 mg/dL (40-60)
[2025-07-09 20:00] LABS: TSH w/ Reflex to FT4 1.42 uIU/mL (0.47-4.68)
== END ==
PROVIDERS: PCP Family Medicine; Visit Provider Family Medicine
DX: E78.2 Mixed hyperlipidemia (principal); E05.90 Thyrotoxicosis, unspecified without thyrotoxic crisis or storm; F19.90 Other psychoactive substance use, unspecified, uncomplicated; R76.89 Other specified abnormal immunological findings in serum
CPT/HCPCS: 80048; 80061; 84443; 85025